=== PATIENT | male | born 1990 | race Caucasian/White ===

== ENCOUNTER 2023-06-11 11:12 | Emergency (ER) | payer MEDICAID, OTHER ==
[~2023-06-11] VITALS: Ht 169.2 cm; Wt 91.2 kg
[2023-06-11 11:30] VITALS: BP 129/96; PULSE 66; RESP 17; TEMP 97.8; O2SAT 99
[2023-06-11] MEDS: NACL 0.9% 1,000 ML IV ONE (12:59)
[2023-06-11] MEDS: ONDANSETRON 4 MG/2 ML VIAL IVP ONE (13:00)
[2023-06-11 13:10] VITALS: O2SAT 99
[2023-06-11 13:15] VITALS: BP 123/92; PULSE 64; RESP 17; TEMP 97.8
[2023-06-11] MEDS ORDERED: ONDA-188 SL (15:23)
[2023-06-11 18:22] VITALS: O2SAT 99
== END 2023-06-11 15:42 | disposition home or self-care (01) ==
LOC: MED 11:12
DX: R11.2 Nausea with vomiting, unspecified (principal); R42 Dizziness and giddiness; E86.0 Dehydration; Z79.899 Other long term (current) drug therapy; Z88.0 Allergy status to penicillin
CPT/HCPCS: 82948; 93005; 96361; 96374; 99283; J2405; J7030